=== PATIENT | female | born 1935 | race Caucasian/White ===

== ENCOUNTER 2017-09-19 10:38 | Outpatient (CLI) | payer OTHER ==
--- NOTE | 2017-09-19 11:43 | DEXA ---
EXAM: Bone densitometry. History: Long-term steroid use Findings: Evaluation of the lumbar spine reveals a total bone mineral density of 1.334 grams per centimeter squ ared with T-score of 1.3. Evaluation of the right hip reveals a total bone mineral density of 0.816 grams per centimeter square d with T-score of negative 1.5. Evaluation of the left hip reveals a total bone mineral density of 0.742 grams per centimeter squared with T-score of negative 2.1. Impression: 1. Normal bone mineral density of the lumbar spine. 2. Osteopenia of bilateral hips
== END 2017-09-19 10:39 | disposition home or self-care (01) ==
LOC: RAD 10:38
PROVIDERS: ATTEND Physician Assistant
DX: Z79.52 Long term (current) use of systemic steroids (principal)

== ENCOUNTER 2017-10-31 11:41 | Outpatient (CLI) | payer OTHER ==
--- NOTE | 2017-10-31 12:48 | DI ---
EXAM: Two views of the chest. History: Long-term steroid use Findings: Heart size is normal. No focal consolidation. No appreciable pleural fluid and no pneumo thorax. No acute osseous abnormalities. Atherosclerotic vascular calcifications of the aortic knob. Calcified mediastinal lymph nodes. Impression: No acute cardiopulmonary process.
== END 2017-10-31 11:42 | disposition home or self-care (01) ==
LOC: RAD 11:41
PROVIDERS: ATTEND Physician Assistant
DX: Z79.52 Long term (current) use of systemic steroids (principal)

== ENCOUNTER 2019-01-03 08:10 | Outpatient (CLI) | payer OTHER | END 2019-01-03 08:11 | disposition home or self-care (01) | LOC: LAB 08:10 | PROVIDERS: ATTEND Family Medicine | DX: E03.9 Hypothyroidism, unspecified (principal); E27.40 Unspecified adrenocortical insufficiency | CPT/HCPCS: 36415; 80053; 80061; 84439; 84443; 85025 ==

== ENCOUNTER 2019-01-07 09:02 | Outpatient (CLI) | payer OTHER ==
--- NOTE | 2019-01-07 12:39 | MRI ---
EXAM: MRI brain with and without contrast. Date: 01/07/2019 COMPARISON: None. HISTORY: Adrenal insufficiency. Loyda's disease. Nelsons syndrome. TECHNIQUE: Routine MR images of the brain were obtained before and after the intravenous administrat ion of 10 mL of Omniscan via the left antecubital IV FINDINGS: Sella: There is a 15 x 13 x 11 mm enhancing T2 hypointense mass in the right-sided pituitary gland, which deviates the pituitary infundibulum from right to left. 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 No evidence of pituitary hemorrhage. Normal posterior pituitary tissue seen. Optic simba sm appears normal. Brain: No other intracranial mass, mass effect, hemorrhage, or abnormal extra-axial fluid collection. The ventricles and subarachnoid spaces are not enlarged. No acute infarct on diffusion weighted im aging. There are periventricular and subcortical white matter T2 hyperintensities that are nonspecif ic and most likely represent small vessel disease. No pineal, or cerebellopontine angle lesion seen. The craniocervical junction appears normal. Visualized orbital structures are normal. Mild mucosa l thickening seen in the maxillary and ethmoid sinuses. No fluid in the middle ear cavities or mastoi d air cells. IMPRESSION: 1. 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 There are periventricular and subcortical white matter T2 hyperintensities that are nonspecific a nd most likely represent small vessel disease.
== END 2019-01-07 09:03 | disposition home or self-care (01) ==
LOC: RAD 09:02
PROVIDERS: ATTEND Family Medicine
DX: E27.40 Unspecified adrenocortical insufficiency (principal); E24.1 Nelson's syndrome; Z86.39 Personal history of other endocrine, nutritional and metabolic disease; E03.9 Hypothyroidism, unspecified